=== PATIENT | female | born 1965 | race Caucasian/White ===

== ENCOUNTER 2016-12-17 18:40 | Emergency (ER) | payer SELFPAY ==
[~2016-12-17] VITALS: Ht 154.9 cm; Wt 127.7 kg
[~2016-12-17 18:40] MED LIST: NOHOMEMEDS; NORVASC10 MG PO; PERCOCET 5/31 TABLET PO; TYLENOL EXTRA500 MG PO
[2016-12-17] MEDS ORDERED: MOTRIN600 MG PO (19:17)
[2016-12-17] MEDS ORDERED: ZITHROMAX250 MG PO (19:17)
[2016-12-17] MEDS ORDERED: ZOFRAN4 MG PO (19:17)
[2016-12-17 19:33] VITALS: BP 112/75
== END 2016-12-17 19:35 | disposition home or self-care (01) ==
LOC: EME 18:40
DX: J32.0 Chronic maxillary sinusitis (principal); J06.9 Acute upper respiratory infection, unspecified; Z98.818 Other dental procedure status; I10 Essential (primary) hypertension; F17.200 Nicotine dependence, unspecified, uncomplicated
CPT/HCPCS: 99281; 99283

== ENCOUNTER 2017-06-19 19:52 | Emergency (ER) | payer OTHER ==
[~2017-06-19] VITALS: Ht 154.9 cm; Wt 123.6 kg
[~2017-06-19 19:52] MED LIST changes: +ADVAIR HFA120 INHALA IH; +ADVIL,NUPRIN,M200 MG PO; +ASPIR-LOW81 MG PO; +ATORVASTATIN CA40 MG PO; +ATROVENT 00.5 MG/2.5 AEROSOL; +LISINOPRIL5 MG PO; +METOPROLOL TART75 MG PO; +MOTRIN600 MG PO; +PANTOPRAZOLE SO40 MG PO; +PRILOSEC10 MG PO; +ZITHROMAX250 MG PO; +ZOFRAN4 MG PO
[2017-06-19 21:31] LABS: HEMATOCRIT 31.3 % (36.0-46.0); MCH 27.1 PG (29.0-34.0); MCHC 30.4 G/DL (30.0-36.0); MCV 89.2 FL (83-99); PLATELET COUNT 404 K/uL (156-360); RBC DIS.WIDTH-CV 22.4 % (11.8-14.6); RBC DIS.WIDTH-SD 72.5 % (39-53); RED BLOOD COUNT 3.51 M/uL (3.80-5.20); WHITE BLOOD COUNT 6.8 K/uL (4.1-10.2)
[2017-06-19 21:39] LABS: CHLORIDE 103 mEq/L (99-109)
[2017-06-19 21:40] LABS: POTASSIUM 3.3 mEq/L (3.7-5.4); SODIUM 138 mEq/L (136-147)
[2017-06-19 21:42] LABS: GLUCOSE 107 mg/dL (70-99)
[2017-06-19 21:43] LABS: ANION GAP 10 MEQ/L (2-14)
[2017-06-19 21:44] LABS: TOTAL BILIRUBIN 0.4 mg/dL (0.0-1.0)
[2017-06-19 21:45] LABS: ALKALINE PHOSPHATASE 124 IU/L (3-129); GFR ESTIMATE (CALCULATED) > 59 mL/min/
[2017-06-19 21:47] LABS: UREA NITROGEN (BUN) 11 mg/dL (9-23)
[2017-06-19] MEDS ORDERED: PROVENTIL,2.5 MG/3 M IH (22:48)
[2017-06-19] MEDS ORDERED: LEVAQUIN500 MG PO (22:48)
[2017-06-19] MEDS ORDERED: TRUNEB NEBULIZ1 EACH MC (22:48)
[2017-06-19 23:09] VITALS: BP 158/101
== END 2017-06-19 23:18 | disposition home or self-care (01) ==
LOC: EME 19:52
DX: J18.9 Pneumonia, unspecified organism (principal); I10 Essential (primary) hypertension; F17.200 Nicotine dependence, unspecified, uncomplicated
CPT/HCPCS: 71020; 80053; 85027; 99281; 99284

== ENCOUNTER 2017-08-03 22:22 | Inpatient (IN) | payer OTHER ==
[~2017-08-03] VITALS: Ht 154.9 cm; Wt 120.0 kg
[~2017-08-03 22:22] MED LIST changes: +LEVAQUIN500 MG PO; +PROVENTIL,2.5 MG/3 M IH; +TRUNEB NEBULIZ1 EACH MC
[2017-08-03 23:02] LABS: HEMATOCRIT 25.2 % (36.0-46.0); HEMOGLOBIN 7.9 G/DL (11.9-15.5); MCH 29.7 PG (29.0-34.0); MCHC 31.3 G/DL (30.0-36.0); MCV 94.7 FL (83-99); PLATELET COUNT 455 K/uL (156-360); RBC DIS.WIDTH-CV 17.2 % (11.8-14.6); RBC DIS.WIDTH-SD 60.1 % (39-53); RED BLOOD COUNT 2.66 M/uL (3.80-5.20); WHITE BLOOD COUNT 10.7 K/uL (4.1-10.2)
[2017-08-03 23:11] LABS: CHLORIDE 104 mEq/L (99-109); SODIUM 138 mEq/L (136-147)
[2017-08-03 23:13] LABS: GLUCOSE 130 mg/dL (70-99)
[2017-08-03 23:16] LABS: CREATININE 0.8 mg/dL (0.6-1.3); GFR ESTIMATE (CALCULATED) > 59 mL/min/
[2017-08-03 23:17] LABS: UREA NITROGEN (BUN) 9 mg/dL (9-23)
[2017-08-03 23:24] LABS: TROP-I INTERPRETATION NEGATIVE; TROPONIN-I 0.02 ng/mL (0.0-0.30)
[2017-08-04 00:42] LABS: INTER. NORMALIZED RATIO 1.2
[2017-08-04 07:33] LABS: HEMATOCRIT 25.4 % (36.0-46.0); MCH 29.4 PG (29.0-34.0); MCHC 31.5 G/DL (30.0-36.0); MCV 93.4 FL (83-99); PLATELET COUNT 425 K/uL (156-360); RBC DIS.WIDTH-CV 17.4 % (11.8-14.6); RBC DIS.WIDTH-SD 58.6 % (39-53); RED BLOOD COUNT 2.72 M/uL (3.80-5.20); WHITE BLOOD COUNT 15.5 K/uL (4.1-10.2)
[2017-08-04 07:43] LABS: CHLORIDE 101 mEq/L (99-109); SODIUM 138 mEq/L (136-147)
[2017-08-04 07:44] LABS: GLUCOSE 117 mg/dL (70-99)
[2017-08-04 07:48] LABS: CREATININE 0.7 mg/dL (0.6-1.3); GFR ESTIMATE (CALCULATED) > 59 mL/min/
[2017-08-04 07:49] LABS: UREA NITROGEN (BUN) 7 mg/dL (9-23)
[2017-08-04 07:56] LABS: TROP-I INTERPRETATION NEGATIVE; TROPONIN-I 0.05 ng/mL (0.0-0.30)
[2017-08-04] MEDS ORDERED: ATORVASTATIN CA40 MG PO (11:27)
[2017-08-04] MEDS ORDERED: LISINOPRIL5 MG PO (11:28)
[2017-08-04] MEDS ORDERED: LOPRESSOR25 MG PO (11:28)
[2017-08-04] MEDS ORDERED: DULERA 200 MCG/13 GM IH (11:29)
[2017-08-04] MEDS ORDERED: FERROUS SULFAT325 MG PO (11:31)
[2017-08-04] MEDS ORDERED: IBUPROFEN800 MG PO (11:31)
[2017-08-04] MEDS ORDERED: B-12500 MC1 SL (11:32)
[2017-08-04] MEDS ORDERED: BANOPHEN25 M3 PO (11:33)
[2017-08-04] MEDS ORDERED: PANTOPRAZOLE SO40 MG PO (11:34)
[2017-08-04 11:38] VITALS: BP 139/73
[2017-08-04 11:49] LABS: APPEARANCE CLEAR ((CLEAR)); BILIRUBIN NEGATIVE; BLOOD NEGATIVE; COLOR STRAW ((YELLOW)); GLUCOSE (STRIP) NEGATIVE; KETONES NEGATIVE; LEUKOCYTES NEGATIVE; NITRITE NEGATIVE; PROTEIN (STRIP) NEGATIVE; SPECIFIC GRAVITY 1.008 (1.000-1.030); UROBILINOGEN 0.2 MG/DL (0.2-1.0)
[2017-08-04 13:24] LABS: TROP-I INTERPRETATION NEGATIVE; TROPONIN-I 0.04 ng/mL (0.0-0.30)
[2017-08-04 16:17] VITALS: BP 154/83
[2017-08-04 20:47] VITALS: BP 118/56
[2017-08-04 23:36] VITALS: BP 121/61
[2017-08-05 03:56] VITALS: BP 101/64
[2017-08-05 06:40] LABS: HEMATOCRIT 25.5 % (36.0-46.0); MCHC 31.4 G/DL (30.0-36.0); MCV 95.5 FL (83-99); PLATELET COUNT 400 K/uL (156-360); RBC DIS.WIDTH-SD 61.8 % (39-53); RED BLOOD COUNT 2.67 M/uL (3.80-5.20); WHITE BLOOD COUNT 13.5 K/uL (4.1-10.2)
[2017-08-05 07:07] LABS: ALBUMIN 2.8 G/DL (3.2-4.8); ALKALINE PHOSPHATASE 117 IU/L (3-129); ALT (GPT) 15 IU/L (3-49); AST (GOT) 19 IU/L (2-34); CHLORIDE 99 MEQ/L (99-109); CREATININE 0.6 MG/DL (0.6-1.3); GFR ESTIMATE (CALCULATED) > 59 mL/min/; GLUCOSE 141 mg/dL (70-99); SODIUM 137 MEQ/L (136-147); TOTAL BILIRUBIN 0.4 MG/DL (0.0-1.0); TOTAL PROTEIN 5.5 G/DL (6.4-8.3); UREA NITROGEN (BUN) 12 mg/dL (9-23)
[2017-08-05 07:09] LABS: POTASSIUM 4.5 MEQ/L (3.7-5.4)
[2017-08-05 08:27] VITALS: BP 119/60
[2017-08-05 11:51] VITALS: BP 127/70
[2017-08-05 16:23] VITALS: BP 107/55
[2017-08-05 20:30] VITALS: BP 136/63
[2017-08-06 00:02] VITALS: BP 126/60
[2017-08-06 03:50] VITALS: BP 146/67
[2017-08-06 04:39] LABS: HEMOGLOBIN 8.2 G/DL (11.9-15.5); MCH 29.1 PG (29.0-34.0); MCHC 30.4 G/DL (30.0-36.0); MCV 95.7 FL (83-99); PLATELET COUNT 416 K/uL (156-360); RBC DIS.WIDTH-CV 17.4 % (11.8-14.6); RBC DIS.WIDTH-SD 61.4 % (39-53); RED BLOOD COUNT 2.82 M/uL (3.80-5.20); WHITE BLOOD COUNT 13.2 K/uL (4.1-10.2)
[2017-08-06 04:51] LABS: CHLORIDE 99 mEq/L (99-109); POTASSIUM 4.2 mEq/L (3.7-5.4)
[2017-08-06 04:52] LABS: SODIUM 136 mEq/L (136-147)
[2017-08-06 04:53] LABS: GLUCOSE 163 mg/dL (70-99)
[2017-08-06 04:57] LABS: CREATININE 0.8 mg/dL (0.6-1.3); GFR ESTIMATE (CALCULATED) > 59 mL/min/
[2017-08-06 04:58] LABS: UREA NITROGEN (BUN) 15 mg/dL (9-23)
[2017-08-06 08:27] VITALS: BP 154/85
[2017-08-06 11:42] VITALS: BP 115/55
[2017-08-06 16:44] VITALS: BP 135/70
[2017-08-06 20:01] VITALS: BP 130/67
[2017-08-07 00:14] VITALS: BP 132/70
[2017-08-07 03:45] VITALS: BP 143/84
[2017-08-07 07:05] LABS: BASOPHIL (%) 0.1 % (0-1); EOSINOPHIL (%) 0.1 % (0-5); HEMATOCRIT 26.5 % (36.0-46.0); HEMOGLOBIN 8.2 G/DL (11.9-15.5); IMMATURE GRANULOCYTE (%) 0.4 % (0.0-0.7); LYMPHOCYTE (%) 19.4 % (15-42); MCH 29.5 PG (29.0-34.0); MCHC 30.9 G/DL (30.0-36.0); MCV 95.3 FL (83-99); MONOCYTE (%) 5.2 % (3-12); MONOCYTE COUNT 0.5 K/uL (0-0.8); NEUTROPHIL (%) 74.8 % (45-76); NEUTROPHIL COUNT 7.6 K/uL (1.8-6.4); PLATELET COUNT 418 K/uL (156-360); RBC DIS.WIDTH-CV 17.4 % (11.8-14.6); RBC DIS.WIDTH-SD 61.3 % (39-53); RED BLOOD COUNT 2.78 M/uL (3.80-5.20); WHITE BLOOD COUNT 10.1 K/uL (4.1-10.2)
[2017-08-07 07:31] LABS: CHLORIDE 98 MEQ/L (99-109); CREATININE 0.8 MG/DL (0.6-1.3); GFR ESTIMATE (CALCULATED) > 59 mL/min/; SODIUM 135 MEQ/L (136-147); UREA NITROGEN (BUN) 20 mg/dL (9-23)
[2017-08-07 07:32] VITALS: BP 144/91
[2017-08-07 07:47] LABS: GLUCOSE 112 mg/dL (70-99)
[2017-08-07 11:14] VITALS: BP 119/55
[2017-08-07] MEDS ORDERED: SPIRONOLACTONE25 MG PO (11:23)
[2017-08-07] MEDS ORDERED: CARVEDILOL6.25 MG PO (11:23)
[2017-08-07] MEDS ORDERED: LASIX20 MG PO (11:23)
[2017-08-07] MEDS ORDERED: ASPIR-LOW81 MG PO (11:23)
[2017-08-07] MEDS ORDERED: PREDNISONE20 MG PO (11:23)
== END 2017-08-07 14:55 | disposition home or self-care (01) | DRG 189 ==
LOC: EME 22:22 → EDOF 08-04 05:15 → 4SOUTH 08-04 05:15 → ENRESERV 08-04 05:20 → 4SOUTH 08-04 11:07
PROVIDERS: Hospitalist; Internal Medicine; Physician Assistant
DX: J96.01 Acute respiratory failure with hypoxia (principal); I11.0 Hypertensive heart disease with heart failure; I50.23 Acute on chronic systolic (congestive) heart failure; J44.1 Chronic obstructive pulmonary disease with (acute) exacerbation; J98.11 Atelectasis; R07.89 Other chest pain; E87.6 Hypokalemia; D64.9 Anemia, unspecified; E78.5 Hyperlipidemia, unspecified; I25.10 Atherosclerotic heart disease of native coronary artery without angina pectoris; I27.20 Pulmonary hypertension, unspecified; I42.9 Cardiomyopathy, unspecified; K21.9 Gastro-esophageal reflux disease without esophagitis; K44.9 Diaphragmatic hernia without obstruction or gangrene; E66.01 Morbid (severe) obesity due to excess calories; I25.2 Old myocardial infarction; Z68.42 Body mass index [BMI] 45.0-49.9, adult; Z91.14 Patient's other noncompliance with medication regimen; Z95.1 Presence of aortocoronary bypass graft; Z88.0 Allergy status to penicillin; Z87.891 Personal history of nicotine dependence; Z79.82 Long term (current) use of aspirin
CPT/HCPCS: 71046; 71275; 80048; 80053; 81003; 82948; 83880; 84484; 85025; 85027; 85610; 85730; 93005; 94640; 94640 76; 94760; 94799; 99202; 99281; 99285; J1644; J1940; J2270; J2930; J3010; J7512

== ENCOUNTER 2017-08-12 18:15 | Emergency (ER) | payer OTHER ==
[~2017-08-12] VITALS: Ht 154.9 cm; Wt 124.9 kg
[~2017-08-12 18:15] MED LIST changes: +B-12500 MC1 SL; +BANOPHEN25 M3 PO; +CARVEDILOL6.25 MG PO; +DULERA 200 MCG/13 GM IH; +FERROUS SULFAT325 MG PO; +IBUPROFEN800 MG PO; +LASIX20 MG PO; +LOPRESSOR25 MG PO; +PREDNISONE20 MG PO; +SPIRONOLACTONE25 MG PO
[2017-08-12 19:27] LABS: HEMATOCRIT 30.4 % (36.0-46.0); HEMOGLOBIN 9.5 G/DL (11.9-15.5); MCH 29.7 PG (29.0-34.0); MCHC 31.3 G/DL (30.0-36.0); PLATELET COUNT 445 K/uL (156-360); RBC DIS.WIDTH-CV 16.5 % (11.8-14.6); RBC DIS.WIDTH-SD 56.1 % (39-53); WHITE BLOOD COUNT 9.9 K/uL (4.1-10.2)
[2017-08-12 19:41] LABS: CHLORIDE 101 mEq/L (99-109); POTASSIUM 3.9 mEq/L (3.7-5.4); SODIUM 134 mEq/L (136-147)
[2017-08-12 19:43] LABS: GLUCOSE 135 mg/dL (70-99)
[2017-08-12 19:46] LABS: TROP-I INTERPRETATION NEGATIVE; TROPONIN-I 0.04 ng/mL (0.0-0.30)
[2017-08-12 19:47] LABS: CREATININE 0.8 mg/dL (0.6-1.3); GFR ESTIMATE (CALCULATED) > 59 mL/min/
[2017-08-12 19:48] LABS: UREA NITROGEN (BUN) 15 mg/dL (9-23)
[2017-08-13 03:06] VITALS: BP 149/91
== END 2017-08-13 03:07 | disposition home or self-care (01) ==
LOC: EME 18:15
DX: J20.9 Acute bronchitis, unspecified (principal); J44.0 Chronic obstructive pulmonary disease with (acute) lower respiratory infection; I10 Essential (primary) hypertension; Z87.891 Personal history of nicotine dependence; Z95.1 Presence of aortocoronary bypass graft; Z88.0 Allergy status to penicillin
CPT/HCPCS: 71046; 80048; 84484; 85027; 93005; 94640

== ENCOUNTER 2017-10-02 05:03 | Inpatient (IN) | payer OTHER ==
[~2017-10-02] VITALS: Ht 154.9 cm; Wt 122.2 kg
[2017-10-02 05:55] LABS: HEMATOCRIT 36.1 % (36.0-46.0); HEMOGLOBIN 11.8 G/DL (11.9-15.5); MCH 33.2 PG (29.0-34.0); MCHC 32.7 G/DL (30.0-36.0); MCV 101.7 FL (83-99); PLATELET COUNT 303 K/uL (156-360); RBC DIS.WIDTH-CV 15.4 % (11.8-14.6); RBC DIS.WIDTH-SD 57.5 % (39-53); RED BLOOD COUNT 3.55 M/uL (3.80-5.20); WHITE BLOOD COUNT 6.2 K/uL (4.1-10.2)
[2017-10-02 06:02] LABS: CHLORIDE 104 mEq/L (99-109); POTASSIUM 3.8 mEq/L (3.7-5.4); SODIUM 140 mEq/L (136-147)
[2017-10-02 06:04] LABS: GLUCOSE 98 mg/dL (70-99)
[2017-10-02 06:08] LABS: CREATININE 0.7 mg/dL (0.6-1.3); GFR ESTIMATE (CALCULATED) > 59 mL/min/
[2017-10-02 06:09] LABS: UREA NITROGEN (BUN) 11 mg/dL (9-23)
[2017-10-02 06:14] LABS: TROP-I INTERPRETATION NEGATIVE; TROPONIN-I 0.03 ng/mL (0.0-0.30)
[2017-10-02 06:21] LABS: INTER. NORMALIZED RATIO 1.1
[2017-10-02 06:23] LABS: PTT 32.9 SEC (25-37)
[2017-10-02 06:27] LABS: ALBUMIN 3.4 g/dL (3.2-4.8)
[2017-10-02 06:30] LABS: TOTAL PROTEIN 7.5 g/dL (6.4-8.3)
[2017-10-02 06:32] LABS: TOTAL BILIRUBIN 0.8 mg/dL (0.0-1.0)
[2017-10-02 06:33] LABS: ALKALINE PHOSPHATASE 459 IU/L (3-129)
[2017-10-02 06:35] LABS: AST (GOT) 122 IU/L (2-34); DIRECT BILIRUBIN 0.5 mg/dL (0.0-0.3)
[2017-10-02 06:36] LABS: ALT (GPT) 52 IU/L (3-49); LIPASE 40 U/L (1.0-51.0)
[2017-10-02] MEDS ORDERED: LO-DOSE ASPIRIN81 M2 PO (08:10)
[2017-10-02] MEDS ORDERED: LASIX40 MG PO (08:12)
[2017-10-02] MEDS ORDERED: ALDACTONE25 MG PO (08:14)
[2017-10-02] MEDS ORDERED: COZAAR50 MG PO (08:15)
[2017-10-02] MEDS ORDERED: TYLENOL EXTRA500 MG PO (08:15)
[2017-10-02] MEDS ORDERED: MUCINEX600 MG PO (08:15)
[2017-10-02 10:42] VITALS: BP 204/95
[2017-10-02 11:30] VITALS: BP 162/78
[2017-10-02 12:46] LABS: TROP-I INTERPRETATION NEGATIVE; TROPONIN-I 0.02 ng/mL (0.0-0.30)
[2017-10-02 14:09] LABS: HEMOGLOBIN A1c (GLYCOHEMOGLOB) 4.9 % (Below 5.7)
[2017-10-02 15:34] VITALS: BP 177/84
[2017-10-02 18:20] LABS: TROP-I INTERPRETATION NEGATIVE; TROPONIN-I 0.04 ng/mL (0.0-0.30)
[2017-10-02 20:30] VITALS: BP 172/95
[2017-10-02 23:43] VITALS: BP 174/94
[2017-10-03 04:20] VITALS: BP 177/81
[2017-10-03 07:53] VITALS: BP 189/74
[2017-10-03 12:28] LABS: HEMOGLOBIN 11.8 G/DL (11.9-15.5); MCH 32.9 PG (29.0-34.0); MCHC 31.9 G/DL (30.0-36.0); MCV 103.1 FL (83-99); PLATELET COUNT 289 K/uL (156-360); RBC DIS.WIDTH-CV 15.5 % (11.8-14.6); RED BLOOD COUNT 3.59 M/uL (3.80-5.20)
[2017-10-03 12:38] VITALS: BP 178/98
[2017-10-03 12:56] LABS: ALBUMIN 3.1 G/DL (3.2-4.8); ALKALINE PHOSPHATASE 345 IU/L (3-129); ALT (GPT) 37 IU/L (3-49); AST (GOT) 74 IU/L (2-34); CHLORIDE 102 MEQ/L (99-109); CREATININE 0.4 MG/DL (0.6-1.3); GFR ESTIMATE (CALCULATED) > 59 mL/min/; GLUCOSE 94 mg/dL (70-99); HDL CHOLESTEROL 45 MG/DL (Desirable>=50); LDL CHOLESTEROL 79 mg/dL (Desirable<100); NON-HDL CHOLESTEROL 96 mg/dL (Desirable<160); SODIUM 139 MEQ/L (136-147); TOTAL BILIRUBIN 0.6 MG/DL (0.0-1.0); TOTAL CHOLESTEROL 141 mg/dL (Desirable<200); TOTAL PROTEIN 6.3 G/DL (6.4-8.3); TRIGLYCERIDES 85 MG/DL (Normal: <150); UREA NITROGEN (BUN) 6 mg/dL (9-23)
[2017-10-03 16:08] VITALS: BP 172/87
[2017-10-03 20:33] VITALS: BP 177/91
[2017-10-03 23:46] VITALS: BP 182/94
[2017-10-04 04:08] VITALS: BP 169/84
[2017-10-04 06:16] LABS: BASOPHIL (%) 0.5 % (0-1); EOSINOPHIL (%) 2.2 % (0-5); EOSINOPHIL COUNT 0.1 K/uL (0-0.3); HEMATOCRIT 38.2 % (36.0-46.0); HEMOGLOBIN 12.2 G/DL (11.9-15.5); IMMATURE GRANULOCYTE (%) 0.3 % (0.0-0.7); LYMPHOCYTE (%) 26.1 % (15-42); LYMPHOCYTE COUNT 1.6 K/uL (1.0-2.8); MCH 33.1 PG (29.0-34.0); MCHC 31.9 G/DL (30.0-36.0); MCV 103.5 FL (83-99); MONOCYTE (%) 8.5 % (3-12); MONOCYTE COUNT 0.5 K/uL (0-0.8); NEUTROPHIL (%) 62.4 % (45-76); NEUTROPHIL COUNT 3.8 K/uL (1.8-6.4); PLATELET COUNT 313 K/uL (156-360); RBC DIS.WIDTH-CV 15.7 % (11.8-14.6); RBC DIS.WIDTH-SD 60.8 % (39-53); RED BLOOD COUNT 3.69 M/uL (3.80-5.20)
[2017-10-04 06:52] LABS: ALBUMIN 3.2 G/DL (3.2-4.8); ALKALINE PHOSPHATASE 348 IU/L (3-129); ALT (GPT) 36 IU/L (3-49); AST (GOT) 72 IU/L (2-34); CHLORIDE 99 MEQ/L (99-109); CREATININE 0.5 MG/DL (0.6-1.3); DIRECT BILIRUBIN 0.3 mg/dL (0.0-0.3); GFR ESTIMATE (CALCULATED) > 59 mL/min/; GLUCOSE 101 mg/dL (70-99); POTASSIUM 3.9 MEQ/L (3.7-5.4); SODIUM 137 MEQ/L (136-147); TOTAL BILIRUBIN 0.8 MG/DL (0.0-1.0); TOTAL PROTEIN 6.7 G/DL (6.4-8.3); UREA NITROGEN (BUN) 7 mg/dL (9-23)
[2017-10-04 07:59] VITALS: BP 170/111
[2017-10-04 10:46] VITALS: BP 167/91
[2017-10-04 15:28] VITALS: BP 183/94
[2017-10-04 20:00] VITALS: BP 152/82
[2017-10-04 23:54] VITALS: BP 124/67
[2017-10-05 06:06] LABS: BASOPHIL (%) 0.7 % (0-1); EOSINOPHIL (%) 3.8 % (0-5); EOSINOPHIL COUNT 0.2 K/uL (0-0.3); HEMOGLOBIN 12.1 G/DL (11.9-15.5); IMMATURE GRANULOCYTE (%) 0.2 % (0.0-0.7); LYMPHOCYTE (%) 33.6 % (15-42); LYMPHOCYTE COUNT 1.5 K/uL (1.0-2.8); MCH 32.8 PG (29.0-34.0); MCHC 31.8 G/DL (30.0-36.0); MONOCYTE (%) 10.6 % (3-12); MONOCYTE COUNT 0.5 K/uL (0-0.8); NEUTROPHIL (%) 51.1 % (45-76); NEUTROPHIL COUNT 2.3 K/uL (1.8-6.4); PLATELET COUNT 289 K/uL (156-360); RBC DIS.WIDTH-CV 15.2 % (11.8-14.6); RBC DIS.WIDTH-SD 57.9 % (39-53); RED BLOOD COUNT 3.69 M/uL (3.80-5.20); WHITE BLOOD COUNT 4.4 K/uL (4.1-10.2)
[2017-10-05 06:31] LABS: ALBUMIN 3.1 G/DL (3.2-4.8); ALKALINE PHOSPHATASE 334 IU/L (3-129); ALT (GPT) 36 IU/L (3-49); AST (GOT) 81 IU/L (2-34); CHLORIDE 101 MEQ/L (99-109); CREATININE 0.6 MG/DL (0.6-1.3); GFR ESTIMATE (CALCULATED) > 59 mL/min/; GLUCOSE 101 mg/dL (70-99); POTASSIUM 4.4 MEQ/L (3.7-5.4); SODIUM 140 MEQ/L (136-147); TOTAL PROTEIN 6.4 G/DL (6.4-8.3); UREA NITROGEN (BUN) 8 mg/dL (9-23)
[2017-10-05 06:32] LABS: TOTAL BILIRUBIN 0.6 MG/DL (0.0-1.0)
[2017-10-05 07:44] LABS: NO-CHARGE AST (GOT) 78 IU/L (15-37); POTASSIUM 4.1 MEQ/L (3.7-5.4)
[2017-10-05 08:19] VITALS: BP 154/85
[2017-10-05 11:49] VITALS: BP 132/57
[2017-10-05] MEDS ORDERED: NORVASC5 MG PO (13:28)
[2017-10-05] MEDS ORDERED: CARVEDILOL12.5 MG PO (13:28)
[2017-10-05] MEDS ORDERED: LOSARTAN POTAS100 MG PO (13:29)
[2017-10-05] MEDS ORDERED: GABAPENTIN100 MG PO (13:30)
[2017-10-05] MEDS ORDERED: MOTRIN600 MG PO (13:31)
== END 2017-10-05 15:06 | disposition home or self-care (01) | DRG 74 ==
LOC: EME 05:03 → 5WEST 08:43 → EDOF 08:43 → ENRESERV 08:43 → 5WEST 10:15 → ENPENDDIS 10-05 13:56 → 5WEST 10-05 15:06
PROVIDERS: Internal Medicine
DX: G62.9 Polyneuropathy, unspecified (principal); I16.0 Hypertensive urgency; I11.0 Hypertensive heart disease with heart failure; I50.22 Chronic systolic (congestive) heart failure; K83.8 Other specified diseases of biliary tract; R74.0 Nonspecific elevation of levels of transaminase and lactic acid dehydrogenase [LDH]; E66.01 Morbid (severe) obesity due to excess calories; Z68.43 Body mass index [BMI] 50.0-59.9, adult; I25.10 Atherosclerotic heart disease of native coronary artery without angina pectoris; K21.9 Gastro-esophageal reflux disease without esophagitis; D64.9 Anemia, unspecified; J44.9 Chronic obstructive pulmonary disease, unspecified; R74.8 Abnormal levels of other serum enzymes; J98.11 Atelectasis; Z95.1 Presence of aortocoronary bypass graft; Z87.891 Personal history of nicotine dependence; Z86.79 Personal history of other diseases of the circulatory system; Z83.3 Family history of diabetes mellitus
CPT/HCPCS: 70450; 70551; 71045; 71046; 72141; 74181; 76705; 80048; 80053; 80061; 80076; 83036; 83690; 83880; 84484; 84999; 85025; 85027; 85610; 85730; 86256 90; 93005; 93306; 93880; 94640; 94640 76; 99281; 99284; G0378; J0360; J1200; J1650; J1885